=== PATIENT | female | born 1975 | race Caucasian/White ===

== ENCOUNTER 2022-07-29 17:00 | Outpatient (CLI) | payer BC, SELFPAY | END 2022-07-29 17:01 | disposition home or self-care (01) | LOC: AMB 08-02 12:11 | PROVIDERS: PCP Family Medicine; Visit Provider Emergency Medicine Emergency Medical Services | DX: F10.129 Alcohol abuse with intoxication, unspecified (principal) | CPT/HCPCS: A0998 ==

== ENCOUNTER 2022-10-29 19:42 | Emergency (ER) | payer BC, SELFPAY ==
[2022-10-29] VITALS (21 sets, daily range): BP systolic 105–142; BP diastolic 71–96; PULSE 66–110; RESP 20; TEMP 35.7; O2SAT 97–100; BMI 22.2
[2022-10-29] MEDS: ASPIRIN 81 MG TAB.CHEW 162 MG PO (20:44)
[2022-10-29 20:47] LABS: Chloride* 102 mmol/L (96-114); Sodium* 134 mmol/L (135-149)
[2022-10-29 20:50] LABS: Creatinine* 0.8 mg/dL (0.5-1.5); Est. Creatinine Clearance* 91.83; Estimated Glomerular Filt Rate 92 ml/min
[2022-10-29 20:51] LABS: Blood Urea Nitrogen* 16 mg/dL (5-24); Calcium* 9.4 mg/dL (8.4-10.6); Carbon Dioxide* 26 mmol/L (20-32); Glucose* 88 mg/dL (60-115)
--- NOTE | 2022-10-29 20:59 | ED.CHESTPAIN ---
HPI - Chest Pain General Chief Complaint: Chest Pain Stated Complaint: Chest pains Time Seen by Provider: 10/29/22 19:50 History of Present Illness HPI narrative: This 47-year-old female comes in reporting chest pain that occurred just prior to arrival at about 7:00 p.m. She was at work and doing light her moderate activity which is usual for her. She states that she was throwing some boxes at the time there were about 10 lb in weight. She has not had any symptoms in the past with such exertion. Today however she did have chest pain in the center of her anterior chest with some associated shortness of breath. She did feel diaphoretic. She did not have any nausea or vomiting. She states the pain lasted for several minutes. She did take 2 baby aspirin and came in here for evaluation. Initially she had increased heart rate likely due to anxiety over her symptoms. Her vital signs have normalized. She states that she is not having any pain currently. She is a smoker on and off over the past 20+ years. She does not know of any other risk factors. Related Data Home Medications Medication Instructions Recorded Confirmed clonidine HCl 0.1 mg tablet mg PO 10/29/22 clonidine HCl 0.1 mg 0.1 mg PO DAILY 10/29/22 10/29/22 tablet,extended release,12 hr dextroamphetamine-amphetamine 15 1 tab PO DAILY 10/29/22 10/29/22 mg tablet dextroamphetamine-amphetamine 20 1 tab PO DAILY 10/29/22 10/29/22 mg tablet dextroamphetamine-amphetamine ER 1 cap PO DAILY 10/29/22 10/29/22 10 mg 24hr capsule,extend release (Adderall XR) dextroamphetamine-amphetamine ER 1 cap PO QAM 10/29/22 10/29/22 30 mg 24hr capsule,extend release (Adderall XR) lurasidone 60 mg tablet (Latuda) 60 mg PO DAILY 10/29/22 10/29/22 lurasidone 80 mg tablet 80 mg PO QPM 10/29/22 10/29/22 paroxetine HCl 20 mg tablet 20 mg PO DAILY 10/29/22 10/29/22 trazodone 50 mg tablet 50 - 150 mg PO QPM PRN 10/29/22 10/29/22 Allergies Allergy/AdvReac Type Severity Reaction Status Date / Time No Known Drug Allergies Allergy Verified 10/29/22 19:52 Review of Systems Status of ROS Reports: 10 or more systems reviewed and unremarkable except as noted in History and below Narrative Constitutional: No fevers, no weight gain or loss. Eyes: No discharge. No vision changes. HENT: No congestion, no sore throat, no ear pain. Cardiovascular: No palpitations. Chest pain as described above. Respiratory: No shortness of breath, no wheezes, no cough. Gastrointestinal: No abdominal pain, no vomiting, no diarrhea. Genitourinary: No dysuria, no hematuria. Musculoskeletal: Normal range of motion. Skin: No rashes, no pruritis. Neurological: No dizziness, weakness, sensory change, speech change. Endo/Heme/Allergies: No bruising or bleeding. No polydipsia. Pysch: no suicidality, no anxiety, no insomnia. All other systems reviewed and are negative. [facility] Social History Smoking Status: Current every day smoker What tobacco products do you use: cigarettes How often do you have a drink containing alcohol: never How often do you have six or more drinks on one occasion: Never AUDIT-C Alcohol total score: 0 Non-prescribed substance use: denies use Exam Narrative Exam Narrative: Constitutional: Well-developed, well-nourished, no acute distress. HEENT: Normocephalic, atraumatic. Neck: Normal range of motion. Nontender. Supple. Heart: Regular. No murmurs. Normal rate. Intact distal pulses. Lungs: Clear to auscultation. No chest discomfort. No reproducible chest discomfort. No wheezes, rhonchi, or rales. Abdomen: Normal bowel sounds. Nontender. No rebound tenderness. Genitalia: Deferred. Back: No midline tenderness. Normal range of motion. Extremities: Normal range of motion. No injury. Skin: Intact. No rash. Warm. No erythema or pallor. Neurologic: No altered sensation. No weakness. Alert and oriented. Psychiatric: No suicidality. No anxiety or depression. No insomnia. Nursing notes and vitals signs are reviewed. Const Vital Signs, click to edit/add: Vital Signs - 24 hr 10/29/22 19:48 10/29/22 19:58 10/29/22 19:59 Temperature 96.2 F L Pulse Rate 94 87 Pulse Rate [Pulse Oximeter] 110 H Respiratory Rate 20 Blood Pressure 142/96 H Blood Pressure [Right Upper Arm] 132/94 H Pulse Oximetry 100 100 100 Oxygen Delivery Method Room Air 10/29/22 20:00 10/29/22 20:02 10/29/22 20:03 Temperature Pulse Rate 90 93 91 Pulse Rate [Pulse Oximeter] Respiratory Rate Blood Pressure 126/95 H Blood Pressure [Right Upper Arm] Pulse Oximetry 100 100 100 Oxygen Delivery Method 10/29/22 20:15 10/29/22 20:30 10/29/22 20:32 Temperature Pulse Rate 85 82 97 Pulse Rate [Pulse Oximeter] Respiratory Rate Blood Pressure 117/71 Blood Pressure [Right Upper Arm] Pulse Oximetry 99 98 99 Oxygen Delivery Method 10/29/22 20:45 10/29/22 21:00 10/29/22 21:02 Temperature Pulse Rate 81 73 74 Pulse Rate [Pulse Oximeter] Respiratory Rate Blood Pressure 123/86 Blood Pressure [Right Upper Arm] Pulse Oximetry 98 97 97 Oxygen Delivery Method 10/29/22 21:15 10/29/22 21:30 10/29/22 21:32 Temperature Pulse Rate 75 75 73 Pulse Rate [Pulse Oximeter] Respiratory Rate Blood Pressure 105/72 Blood Pressure [Right Upper Arm] Pulse Oximetry 98 97 97 Oxygen Delivery Method 10/29/22 21:45 10/29/22 22:00 10/29/22 22:02 Temperature Pulse Rate 71 78 77 Pulse Rate [Pulse Oximeter] Respiratory Rate Blood Pressure 112/73 Blood Pressure [Right Upper Arm] Pulse Oximetry 97 98 97 Oxygen Delivery Method 10/29/22 22:15 Temperature Pulse Rate 75 Pulse Rate [Pulse Oximeter] Respiratory Rate Blood Pressure Blood Pressure [Right Upper Arm] Pulse Oximetry 97 Oxygen Delivery Method Course Vital Signs Vital signs: Initial Vital Signs Temperature 96.2 F L 10/29/22 19:48 Temperature Source Temporal Artery Scan 10/29/22 19:48 Pulse Rate 110 H 10/29/22 19:48 Respiratory Rate 20 10/29/22 19:48 Blood Pressure 132/94 H 10/29/22 19:48 Blood Pressure Mean 106 10/29/22 19:48 Blood Pressure Position Sitting 10/29/22 19:48 Pulse Oximetry 100 10/29/22 19:48 Oxygen Delivery Method Room Air 10/29/22 19:48 Vital Signs Temperature 96.2 F L 10/29/22 19:48 Pulse Rate 110 H 10/29/22 19:48 Respiratory Rate 20 10/29/22 19:48 Blood Pressure 132/94 H 10/29/22 19:48 Pulse Oximetry 100 10/29/22 19:48 Oxygen Delivery Method Room Air 10/29/22 19:48 Temperature 96.2 F L 10/29/22 19:48 Pulse Rate 75 10/29/22 22:15 Respiratory Rate 20 10/29/22 19:48 Blood Pressure 112/73 10/29/22 22:02 Pulse Oximetry 97 10/29/22 22:15 Oxygen Delivery Method Room Air 10/29/22 19:48 MDM - Chest Pain MDM Narrative Medical decision making narrative: This patient comes in with an episode of chest pain that lasted for several minutes and now throughout her stay here she is having no symptoms. She does not have any prior exercise intolerance and actually likes to work hard and has no symptoms. She does smoke and is not aware of any other risk factors. Repeated EKG and troponin levels over the course of almost 4 hours since her symptoms began returned with negative results. This seems to be an atypical chest pain that is noncardiac in nature however I advised her to follow-up with the primary physician for a stress test or certainly return if symptoms are recurrent. At the time of discharge the patient appears safe for outpatient management. The treatment plan is reviewed along with written and verbal return precautions. Reasons to return and the importance of close followup were also reviewed. Lab Data Labs: Lab Results 10/29/22 10/29/22 10/29/22 Range/Units 19:50 20:41 22:04 WBC 5.59 (4.50-11.00) K/uL RBC 4.55 (4.00-5.20) m/uL Hgb 14.9 (12.0-16.0) gm/dL Hct 44.4 (33.0-51.0) % MCV 98 (80-100) fL MCH 33 (26-34) pg MCHC 34 (32-36) gm/dL RDW Coeff of Beck 12.5 (11.5-15.5) % Plt Count 323 (140-440) K/uL Neut % (Auto) 63.0 (42.0-72.0) % Lymph % (Auto) 27.2 (20-44) % [place] % (Auto) 7.3 (0.0-11.0) % Eos % (Auto) 1.8 (0.0-7.0) % Baso % (Auto) 0.7 (0.0-3.0) % Neut # (Auto) 3.52 (1.7-7.0) K/uL Lymph # (Auto) 1.52 (0.90-2.90) K/uL [place] # (Auto) 0.40 (0.00-0.90) K/UL Eos # (Auto) 0.10 (0.00-0.50) K/uL Baso # (Auto) 0.04 (0.00-0.30) K/uL Sodium 134 L (135-149) mmol/L Potassium 4.0 (3.6-5.1) mmol/L Chloride 102 (96-114) mmol/L Carbon Dioxide 26 (20-32) mmol/L BUN 16 (5-24) mg/dL Creatinine 0.8 (0.5-1.5) mg/dL Estimated Creat Clear 91.83 Estimated GFR 92 ml/min Glucose 88 (60-115) mg/dL Calcium 9.4 (8.4-10.6) mg/dL POC Troponin I 0.00 L 0.00 L (0.01-0.04) ng/ml ECG Data Attestation: I personally reviewed and interpreted this ECG as follows: Interpretation: Normal sinus rhythm. Rate is 84 beats per minute. There are no ST or T-wave abnormalities. Discharge Plan Discharge Clinical Impression: Atypical chest pain Patient Disposition: Home, Self-Care Condition: Improved Additional Instructions: Continue current plans. Activity as tolerated. Smoking cessation is advised. Follow up with MD or return if symptoms are recurrent. Prescriptions: No Action clonidine HCl 0.1 mg tablet PO trazodone 50 mg tablet 50 - 150 mg PO QPM PRN paroxetine HCl 20 mg tablet 20 mg PO DAILY dextroamphetamine-amphetamine 20 mg tablet 1 tab PO DAILY dextroamphetamine-amphetamine 15 mg tablet 1 tab PO DAILY dextroamphetamine-amphetamine [Adderall XR] 10 mg capsule,extended release 24hr 1 cap PO DAILY dextroamphetamine-amphetamine [Adderall XR] 30 mg capsule,extended release 24hr 1 cap PO QAM clonidine HCl 0.1 mg tablet extended release 12 hr 0.1 mg PO DAILY lurasidone 80 mg tablet 80 mg PO QPM lurasidone [Latuda] 60 mg tablet 60 mg PO DAILY Follow Up/Referrals: Sabrina Art DO [Primary Care Provider] - Stand Alone Forms: [employer] Info Instructions
[2022-10-29 21:13] LABS: Basophils Absolute Auto 0.04 K/uL (0.00-0.30); Basophils Percent Auto 0.7 % (0.0-3.0); Eosinophils Percent Auto 1.8 % (0.0-7.0); Hematocrit 44.4 % (33.0-51.0); Hemoglobin* 14.9 gm/dL (12.0-16.0); Lymphocytes Absolute Auto 1.52 K/uL (0.90-2.90); Lymphocytes Percent Auto 27.2 % (20-44); Mean Corpuscular HGB Conc 34 gm/dL (32-36); Mean Corpuscular Hemoglobin 33 pg (26-34); Mean Corpuscular Volume 98 fL (80-100); Monocytes Percent Auto 7.3 % (0.0-11.0); Neutrophils Absolute Auto 3.52 K/uL (1.7-7.0); Platelet Count* 323 K/uL (140-440); RDW Coefficient of Variation % 12.5 % (11.5-15.5); Red Blood Count 4.55 m/uL (4.00-5.20); White Blood Count* 5.59 K/uL (4.50-11.00)
[2022-10-29 21:15] LABS: Slide Review Reflex No
== END 2022-10-29 22:59 | disposition home or self-care (01) ==
PROVIDERS: Emergency Provider Emergency Medicine Emergency Medical Services; PCP Family Medicine
DX: R07.9 Chest pain, unspecified (principal)
CPT/HCPCS: 36415; 80048; 84484; 85025; 93005; 99284; A9270

== ENCOUNTER 2023-04-23 17:07 | Emergency (ER) | payer BC, SELFPAY ==
[2023-04-23 17:14] VITALS: BP 114/79; PULSE 112; RESP 18; TEMP 37; O2SAT 97; BMI 22.0
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
--- NOTE | 2023-04-23 17:47 | CRLHL7_ITS ---
For Patients: As a result of the Cures Act, medical imaging exams and procedure reports are released immediately into your electronic medical record. You may view this report before your referring provider. If you have questions, please contact your health care provider. INDICATION: Trauma. TECHNIQUE: Chest ribs, 2 views. COMPARISON: None. FINDINGS: Visualized cardiovascular and mediastinum: Heart size and vasculature are normal in caliber and appearance. Visualized lungs and pleural spaces: Lungs are clear. No sign of infiltrate or mass. No sign of pleural effusion. No pneumothorax. Bones and soft tissues: Possible minimally displaced right 12th rib fracture versus overlying soft tissue artifact. IMPRESSION: Possible minimally displaced right 12th rib fracture versus overlying soft tissue artifact. Recommend correlation with point tenderness. Dictated by Moy Villagran MD @ 04/23/2023 7:10:31 PM (Electronically Signed)
[2023-04-23] MEDS: IBUPROFEN 400 MG TABLET 800 MG PO (18:15)
[2023-04-23 19:23] LABS: Appearance Urine Slightly Cloudy (Clear); Bilirubin Urine Negative (Negative); Blood Urine Negative (Negative); Color Urine Yellow (Yellow); Glucose Urine Negative (Negative); Ketones Urine Negative (Negative); Leukocyte Esterase Urine Trace (Negative); Nitrite Urine Negative (Negative); Protein Urine Negative (Negative); Specific Gravity Urine >= 1.030 (1.000-1.030); Urobilinogen Urine 0.2 (0.2-1.0); pH Urine 6.5 (5.0-8.5)
[2023-04-23 19:31] LABS: Bacteria Urine Few; RBC Urine 0-2 (0-2); Squamous Epithelial Cell Urine Few (None-Few); WBC Urine 0-2 (0-5)
== END 2023-04-23 20:34 | disposition home or self-care (01) ==
PROVIDERS: Emergency Provider Family Medicine; PCP Family Medicine
DX: S22.31XA Fracture of one rib, right side, initial encounter for closed fracture (principal); S43.101A Unspecified dislocation of right acromioclavicular joint, initial encounter; W50.0XXA Accidental hit or strike by another person, initial encounter; Y92.002 Bathroom of unspecified non-institutional (private) residence as the place of occurrence of the external cause
CPT/HCPCS: 71100; 73030; 81001; 87086; 99284; A9270